=== PATIENT | female | born 1955 | race Caucasian/White ===

== ENCOUNTER → 2017-04-23 | Outpatient (CLI) | payer OTHER ==
[~2017-04-23] MED LIST: ALDACTONE25 MG PO; ALLOPURINOL 30300 M1 PO; AMBIEN 5 MG TABL5 M1 PO; ASPIR 8181 MG PO; ASPIRIN325 PO; BENADRYL25 MG PO; CEFDINIR300 MG PO; CEFTIN500 MG PO; CLARITIN10 MG PO; CLOPIDOGREL75 MG PO; COLACE100 MG PO; CYMBALTA60 MG PO; DOXYCYCLINE 10100 M2 PO; FEVERALL650 MG RECTAL; FISH OIL 1,2001 EAC4 PO; FLONASE 0.05%50 MCG NASAL; FUROSEMIDE40 MG/4 ML PO; GLUCOSAMINE &1 EACH PO; HYDROCODON-ACE1 EACH; HYDROCODONE-AP1 EAC6 PO; IMDUR 30 MG TAB30 M1 PO; LIPITOR 20 MG T20 M1 PO; LISINOPRIL20 MG PO; LOPRESSOR 50 MG50 M1; LOPRESSOR25 PO; LOPRESSOR50 PO; MEDROLDOSEPACK PO; METAMUCIL PACK1 EACH PO; METAMUCIL1 EAC1 PO; MOM PO; MULTIVITAMINS1 EAC7 PO; NITROSTAT0.4 MG SUBLING; NORCO 5-325 TA1 EACH PO; ONDANSETRON HCL4 M2 PO; OXYCODONE HCL 55 MG PO; PEPCID20 MG PO; PERCOCET PO; PLAVIX 75 MG TA75 M1 PO; POTASSIUM GLUC500 MG PO; POTASSIUM GLUCO PO; PROTONIX40 M2 PO; Potassium Gluconate PO; RANITIDINE 150150 M1 PO; REQUIP0.5 MG PO; SIMVASTATIN40 MG PO; THERAGRAN-M PR1 EAC1 PO; TOBREX5 ML NASAL; TRAZODONE HCL50 MG PO; TRICOR145 MG PO; TUMS PO; TYLENOL325 MG PO; XARELTO10 MG PO; ZANTAC 150MG T150 MG PO; ZETIA10 MG PO; ZYRTEC10 M5 PO; ZYRTEC10 MG PO; [UNRECOGNIZED DRUG - OTHER] PO; [UNRECOGNIZED DRUG - OTHER] PO
[2017-04-23 09:28] LABS: ABSOLUTE BASOPHILS 0.1 thou/uL (0.0-0.2); ABSOLUTE EOSINOPHILS 0.2 thou/uL (0.0-0.7); ABSOLUTE LYMPHOCYTES 1.3 thou/uL (0.8-5.3); ABSOLUTE MONOCYTES 0.4 thou/uL (0.0-1.2); ABSOLUTE NEUTROPHILS 3.1 thou/uL (1.6-8.1); BASOPHILS 1.1 %; EOSINOPHILS 4.9 %; HEMATOCRIT 41.7 % (37.0-47.0); HEMOGLOBIN 13.9 gm/dL (12.0-15.0); MCH 30.8 pg (26.0-34.0); MCHC 33.4 g/dL (28.0-37.0); MCV 92.2 fL (80.0-100.0); MONOCYTES 7.4 %; MPV 8.9 fl. (7.2-11.1); NUCLEATED RBCS 0 /100WBC; PLATELET COUNT* 226 thou/uL (150-400); POLYS 60.6 %; RBC 4.52 mil/uL (4.20-5.00); RDW-CV 14.6 % (10.5-14.5); WBC 5.1 thou/uL (4.0-11.0)
[2017-04-23 09:53] LABS: CALCIUM 9.3 mg/dL (8.5-10.1); CREATININE 1.3 mg/dL (0.6-1.3); PHOSPHORUS* 2.7 mg/dL (2.5-4.9); POTASSIUM 4.3 mmol/L (3.5-5.1)
[2017-04-23 17:08] LABS: eGFR IF AFRICAN AMERICAN 61 (>59)
[2017-04-24 13:12] LABS: PARATHYROID HORMONE 33 pg/mL (15-65)
== END ==
LOC: M.LAB 09:02
PROVIDERS: Internal Medicine Nephrology
DX: I12.9 Hypertensive chronic kidney disease with stage 1 through stage 4 chronic kidney disease, or unspecified chronic kidney disease (principal); N18.9 Chronic kidney disease, unspecified

== ENCOUNTER → 2017-05-06 | Outpatient (CLI) | payer OTHER ==
[2017-05-06 09:43] LABS: ALBUMIN 4.4 g/dL (3.4-5.0); CALCIUM 9.8 mg/dL (8.5-10.1); CREATININE 1.7 mg/dL (0.6-1.3); POTASSIUM 4.7 mmol/L (3.5-5.1); TOTAL BILIRUBIN 0.5 mg/dL (<0.1-1.0); TOTAL PROTEIN 8.2 g/dL (6.4-8.2)
== END ==
LOC: M.LAB 09:01
PROVIDERS: Nurse Practitioner
DX: I50.32 Chronic diastolic (congestive) heart failure (principal); I10 Essential (primary) hypertension; E03.9 Hypothyroidism, unspecified

== ENCOUNTER 2017-05-20 10:36 | Outpatient (CLI) | payer OTHER ==
[~2017-05-20] VITALS: Ht 175.3 cm; Wt 148.3 kg
[2017-05-20] VITALS (8 sets, daily range): BP systolic 104–149; BP diastolic 48–68
[~2017-05-20 10:36] MED LIST changes: -CLARITIN10 MG PO; -FUROSEMIDE40 MG/4 ML PO; -IMDUR 30 MG TAB30 M1 PO; -ZYRTEC10 M5 PO
[2017-05-20 11:20] LABS: ANION GAP 9 mmol/L (7-16); BUN 26 mg/dL (7-18); CHLORIDE 105 mmol/L (98-107); CO2 28 mmol/L (21-32); CREATININE 1.2 mg/dL (0.6-1.3); GLUCOSE 115 mg/dL (70-99); POTASSIUM 4.5 mmol/L (3.5-5.1); SODIUM 142 mmol/L (136-145)
[2017-05-20 11:25] LABS: ALKALINE PHOSPHATASE 58 U/L (46-116); CHOLESTEROL 137 mg/dL (<200); HDL CHOLESTEROL 36 mg/dL (>40); LDL CHOLESTEROL 55 mg/dL (<100); SERUM ASSESSMENT Clear; SGOT 58 U/L (15-37); SGPT 25 U/L (30-65); TC:HDL 3.8 Ratio (Not establshd); TOTAL BILIRUBIN 0.4 mg/dL (<0.1-1.0); TOTAL PROTEIN 7.4 g/dL (6.4-8.2); TRIGLYCERIDE 231 mg/dL (<150); VLDL 46 mg/dL (<40)
[2017-05-20 11:36] LABS: RBC ND mil/uL (4.20-5.00); WBC ND thou/uL (4.0-11.0)
[2017-05-20 11:37] LABS: HEMATOCRIT ND % (37.0-47.0); HEMOGLOBIN ND gm/dL (12.0-15.0)
[2017-05-20] MEDS ORDERED: ZETIA10 MG PO (11:37)
[2017-05-20 11:38] LABS: MCH ND pg (26.0-34.0); MCHC ND g/dL (28.0-37.0); MCV ND fL (80.0-100.0)
[2017-05-20] MEDS ORDERED: FUROSEMIDE40 MG/4 ML PO (11:38)
[2017-05-20] MEDS ORDERED: ZYRTEC10 M5 PO (11:38)
[2017-05-20 11:39] LABS: MPV ND fl. (7.2-11.1); PLATELET COUNT* ND thou/uL (150-400); RDW-CV ND % (10.5-14.5)
[2017-05-20] MEDS ORDERED: ASPIR 8181 MG PO (11:39)
[2017-05-20] MEDS ORDERED: CLARITIN10 MG PO (11:40)
[2017-05-20 12:00] LABS: HEMATOCRIT 39.3 % (37.0-47.0); HEMOGLOBIN 13.2 gm/dL (12.0-15.0); MCH 31.4 pg (26.0-34.0); MCHC 33.5 g/dL (28.0-37.0); MCV 93.7 fL (80.0-100.0); MPV 9.2 fl. (7.2-11.1); RBC 4.2 mil/uL (4.20-5.00); RDW-CV 14.3 % (10.5-14.5); WBC 6.2 thou/uL (4.0-11.0)
[2017-05-20 12:10] LABS: APTT 23.5 Seconds (25.0-31.3); INR 1.1; PROTIME 11.1 Seconds (9.20-11.50)
--- NOTE | 2017-05-20 16:05 | EKG ---
[place] [address] ELECTROCARDIOGRAM REPORT Name: JULIOCESARASIASTEVEN JEFF Room: [address]#: [id number] Admission: 05/20/17 Attend Phys: Hitesh Tomlinson MD, Discharge: Date of : 51 Report #: [id number] THIS REPORT FOR: //name// [facility] Test Date: 2017-05-20 Test Time: 11:20:53 Pat Name: STEVEN GARDINER Department: Room: Gender: F [employer]: : 1955 Requested By: Hitesh Tomlinson Order Number: [id number] MD: Hitesh Tomlinson Measurements Intervals [place] Rate: 72 P: 53 IL: 158 QRS: -28 QRSD: 92 T: 101 QT: 464 QTc: 508 Interpretive Statements Sinus rhythm Borderline left axis deviation Abnormal R-wave progression, late transition Borderline repolarization abnormality Prolonged QT interval Baseline wander in lead(s) V1,V2,V3,V4,V5,V6 Compared to ECG 07/19/2014 09:32:33 Prolonged QT interval now present Myocardial infarct finding no longer present Electronically Signed On 05-20-2017 16:04:50 CDT by Hitesh Tomlinson [email or web address] <ELECTRONICALLY SIGNED> By: Hitesh Tomlinson MD, [facility] 05/20/17 1604 1120 1120 Hitesh Tomlinson MD, [facility] /EPI
[2017-05-20] MEDS ORDERED: IMDUR 30 MG TAB30 M1 PO (18:44)
--- NOTE | 2017-05-21 12:39 | CARD ---
[address] [address] CARDIAC CATH REPORT Name: STEVEN GARDINER Room: [address]#: [id number] Admission: 05/20/17 Attend Phys: Hitesh Tomlinson MD, Discharge: Date of : 51 Report #: [id number] THIS REPORT FOR: //name// APPROVED REPORT Study performed: 05/20/2017 13:13:46 Patient Details Patient Status: Out-Patient Room #: The patient is a 61 year-old female Event Personnel Hitesh Tomlinson It Investment/Portfolio Manager, Arielle Avila RN Mgmt Analyst, Amrita [place] Monitor, Sabrina Aguirre RTR Scrub Procedures Performed Art Access - R femoral artery* , Selective Right and Left Coronary Angiography, Left Ventriculogram Indication Unstable angina , Positive stress test Risk Factors Obesity, Hypertension Previous Procedures/Diagnoses Previous CABGPrevious PCI Procedure Narrative The patient was brought electively to the Cardiac Catheterization Laboratory and was prepped and draped in a sterile manner. The right femoral was infiltrated with 1% Lidocaine subcutaneous anesthesia. A [place] 6 FR sheath was inserted into the right femoral artery. Coronary angiography was performed using coronary diagnostic catheters. The right coronary system was accessed and visualized with a Diagnostic JR 4 6FR catheter. The left coronary system was accessed and visualized with a Diagnostic JL 4 6FR catheter. The left ventricle was accessed and visualized with a Diagnostic PIGTAIL catheter. Left ventricular/Aortic Valve gradient assessed via catheter pullback. Left ventriculogram was performed in RAY projection. Pre-demployment femoral angiogram was performed . Closure device was deployed with a 6 Fr Angioseal STS 6Fr. The patient tolerated the procedure well and there were no complications associated with the procedure. [place] [address] CARDIAC CATH REPORT Name: STEVEN GARDINER [address] [id number] Admission: 05/20/17 Attend Phys: Hitesh Tomlinson MD, Discharge: Date of : 51 Report #: [id number] Intraoperative Conscious Sedation Sedation start time: 13:40 Case end Time: 14:46 Fentanyl 50 mcg Versed 3 mg Fluoro Time: 6.3 minutes Dose: DAP [id number] cGycm2 1450.55 mGy Contrast Type and Amount: Visipaque 150 ml Coronary Angiography The patient's coronary anatomy is right dominant. [place] Artery Percent Stenosis #1 widely patent DOW graft to the distal LAD with 70% apical LAD stenosis beyond the distal anastomotic site #2 widely patent vein graft to the right coronary artery with prominent collaterals through the septum to the LAD and prominent diagonal Diagnostic Cath Left Main 0% narrowing LAD 95% proximal stenosis with total mid LAD occlusion Diagonal 1 100% proximal occlusion Diagonal 2 90% proximal stenosis Circumflex 100% proximal occlusion Right Coronary 100% proximal occlusion as per #1 prior catheter Left Ventriculography The left ventricle is normal in size with contractility. The left ventricular ejection fraction is estimated to be 50%. Left ventricular wall motion abnormalities are present. Mild anterior hypokinesis Hemodynamics The aortic pressure is 108/59 mmHg with a mean of mmHg. The left ventricular pressure is 107/6 mmHg with a mean of mmHg. The left ventricular end diastolic pressure is 18 mmHg. There was no gradient across the aortic valve upon pullback. Conclusion #1 significant coronary artery characterized by the following: A 90% proximal LAD stenosis with total mid LAD occlusion; there is total occlusion of the prominent first diagonal with 90% proximal stenosis [place] [address] CARDIAC CATH REPORT Name: STEVEN GARDINER [address] [id number] Admission: 05/20/17 Attend Phys: Hitesh Tomlinson MD, Discharge: Date of : 51 Report #: [id number] total proximal occlusion of the prominent nondominant circumflex C total occlusion of the dominant right coronary artery proximally #2 graft study characterized by the following: A widely patent DOW graft to the distal LAD with 70% apical LAD stenosis and no significant retrograde filling of the mid LAD B widely patent saphenous vein graft to the dominant right heart coronary artery with a prominent arcade of collaterals through the septum to the LAD and diagonal #3 moderate elevation of left ventricular end-diastolic pressure at rest Recommendations Cardiac Risk Reduction Program Aggressive Medical Therapy Diagnostic Cath Approved by: Hitesh Tomlinson MD Date/Time: 05/21/17 at 24 hours <ELECTRONICALLY SIGNED> By: Hitesh Tomlinson MD, [facility] 05/21/17 1238 1238 1238Jomeghna Tomlinson MD, FAC /INF
== END 2017-05-20 19:12 | disposition home or self-care (01) ==
LOC: M.CL 10:36 → M.TBA-CV 15:09 → M.CL 19:12
PROVIDERS: Internal Medicine
DX: I25.10 Atherosclerotic heart disease of native coronary artery without angina pectoris (principal); I25.82 Chronic total occlusion of coronary artery; I50.1 Left ventricular failure, unspecified; I10 Essential (primary) hypertension; E66.09 Other obesity due to excess calories; Z79.82 Long term (current) use of aspirin; Z79.899 Other long term (current) drug therapy; Z79.891 Long term (current) use of opiate analgesic; Z90.49 Acquired absence of other specified parts of digestive tract; Z98.890 Other specified postprocedural states; Z90.710 Acquired absence of both cervix and uterus; Z79.01 Long term (current) use of anticoagulants